=== PATIENT | female | born 1995 | race Caucasian/White ===

== ENCOUNTER 2018-11-22 00:37 | Emergency (ER) | payer SELFPAY ==
[2018-11-22] MEDS: DIPHTH/TET/ACEL PERTUSS (ADULT) 0.5 ML VIAL IM* (01:35)
[2018-11-22] MEDS ORDERED: LIDOCAINE 1% (MDV) 20 ML INJ (01:45)
[2018-11-22] MEDS: LIDOCAINE 1% (MDV) 20 ML INJ SC (01:49)
== END 2018-11-22 03:37 | disposition home or self-care (01) ==
LOC: E/R 00:37
DX: S41.012A Laceration without foreign body of left shoulder, initial encounter (principal); F10.920 Alcohol use, unspecified with intoxication, uncomplicated; F17.210 Nicotine dependence, cigarettes, uncomplicated; R93.0 Abnormal findings on diagnostic imaging of skull and head, not elsewhere classified; V89.2XXA Person injured in unspecified motor-vehicle accident, traffic, initial encounter; Z23 Encounter for immunization
CPT/HCPCS: 12002; 70450; 72125; 84703; 90471; 90715; 99284-25